=== PATIENT | male | born 1975 | race Caucasian/White ===

== ENCOUNTER 2023-04-16 17:39 | Emergency (ER) | payer OTHER ==
[~2023-04-16] VITALS: Ht 185.4 cm; Wt 129.3 kg
[~2023-04-16 17:39] MED LIST: CYCL10 PO; IBUP800 PO; Norco 5-325 Ta1 EACH PO
[2023-04-16 19:05] VITALS: BP 139/86
[2023-04-16] MEDS ORDERED: Norco 7.5-3251 EACH PO (19:42)
[2023-04-16] MEDS ORDERED: IBUP800 PO (19:43)
== END 2023-04-17 02:28 | disposition home or self-care (01) ==
LOC: ER 17:39
DX: S22.42XA Multiple fractures of ribs, left side, initial encounter for closed fracture (principal); V29.99XA Rider (driver) (passenger) of other motorcycle injured in unspecified traffic accident, initial encounter; I10 Essential (primary) hypertension; E11.9 Type 2 diabetes mellitus without complications; J44.9 Chronic obstructive pulmonary disease, unspecified; F17.200 Nicotine dependence, unspecified, uncomplicated
CPT/HCPCS: 71101; 73000; 73030; 96374; 99284-25; A9270; J1885

== ENCOUNTER 2023-07-20 21:08 | Emergency (ER) | payer OTHER ==
[~2023-07-20] VITALS: Ht 185.4 cm; Wt 127.0 kg
[~2023-07-20 21:08] MED LIST changes: +Norco 7.5-3251 EACH PO
[2023-07-20 21:29] VITALS: BP 155/99
== END 2023-07-20 22:17 | disposition home or self-care (01) ==
LOC: ER 21:08
DX: S20.212A Contusion of left front wall of thorax, initial encounter (principal); I10 Essential (primary) hypertension; E11.9 Type 2 diabetes mellitus without complications; F17.200 Nicotine dependence, unspecified, uncomplicated; V44.5XXA Car driver injured in collision with heavy transport vehicle or bus in traffic accident, initial encounter
CPT/HCPCS: 71046; 99284-25